=== PATIENT | male | born 1980 | race Caucasian/White ===

== ENCOUNTER → 2019-02-03 16:19 | Outpatient (CLI) | payer OTHER, SELFPAY ==
[2019-02-03 17:09] LABS: Influenza A and B by PCR Rapid Negative (Negative)
== END ==
PROVIDERS: Visit Provider Physician Assistant
DX: R52 Pain, unspecified (principal)
CPT/HCPCS: 87502

== ENCOUNTER → 2019-05-25 09:10 | Outpatient (CLI) | payer OTHER, SELFPAY ==
--- NOTE | 2019-05-25 09:15 | DI.MRI.S_ITS ---
PROCEDURE: MR BRAIN (IAC) WWO CON INDICATIONS: Unspecified sensorineural hearing loss TECHNIQUE: Noncontrast sagittal T1 spin echo, axial FLAIR, axial gradient echo, axial diffusion and ADC through the brain. Axial thin-slice 3D CISS, coronal TruFISP, axial T1 spin echo with fat saturation through the internal auditory canals. After the administration of contrast, thin slice axial and coronal T1 spin echo with fat saturation through the internal auditory canals, and axial T1 spin echo with fat saturation through the brain. COMPARISON: None. FINDINGS: Image quality: Excellent. Cerebellopontine angles: No cerebellopontine angle masses. Inner ear structures appear normally formed. No suspicious enhancement in the internal auditory canal or along the course of the 7th cranial nerve. CSF spaces: Ventricles are normal in size and shape. No extra-axial fluid collections. Basal cisterns are patent. Brain: No intracranial bleeds or mass effects. Fregoso-white matter interface is intact. No abnormal intracranial enhancement. Diffusion weighted images demonstrate no acute ischemic insults. Brainstem appears normal. Normal intravascular flow voids are present. Skull and face: Calvarial marrow signal is normal. Orbits appear normal. Mild left maxillary sinus disease IMPRESSION: No discrete mass or suspicious abnormal enhancement involving the IAC or cerebellopontine angles bilaterally. Dictated by: Jose Martin Cash M.D. on 05/25/2019 at 13:30 Approved by: Jose Martin Cash M.D. on 05/25/2019 at 13:48
== END ==
PROVIDERS: Referring Provider Audiologist; Visit Provider Audiologist
DX: H90.5 Unspecified sensorineural hearing loss (principal); J32.0 Chronic maxillary sinusitis
CPT/HCPCS: 70553; A9579

== ENCOUNTER → 2022-02-18 09:17 | Outpatient (CLI) | payer OTHER, SELFPAY ==
--- NOTE | 2022-02-18 09:18 | DI.MRI.S_ITS ---
PROCEDURE: MR BRAIN (IAC) WWO CON INDICATIONS: NOISE EFFECTS ON INNER EAR TECHNIQUE: Noncontrast sagittal T1 spin echo, axial FLAIR, axial gradient echo, axial diffusion and ADC through the brain. Axial thin-slice 3D CISS, coronal TruFISP, axial T1 spin echo with fat saturation through the internal auditory canals. After the administration of contrast, thin slice axial and coronal T1 spin echo with fat saturation through the internal auditory canals, and axial and coronal and sagittal T1 spin echo with fat saturation through the brain. COMPARISON: [facility], MR, MR BRAIN (IAC) WWO CON, 05/25/2019, 9:24. FINDINGS: Image quality: Excellent. Cerebellopontine angles: No cerebellopontine angle masses. Inner ear structures appear normally formed. No suspicious enhancement in the internal auditory canal or along the course of the 7th cranial nerve. Note is made of the vascular loop into the left internal auditory canal, as on series 7, image 25. CSF spaces: Ventricles are normal in size and shape. No extra-axial fluid collections. Basal cisterns are patent. Brain: No intracranial bleeds or mass effects. Fregoso-white matter interface is intact. No abnormal intracranial enhancement. Diffusion weighted images demonstrate no acute ischemic insults. Brainstem appears normal. Normal intravascular flow voids are present. Skull and face: Calvarial marrow signal is normal. Orbits appear normal. Sinuses: Sinuses and mastoids are clear. IMPRESSION: There is a vascular loop seen into the left internal auditory canal. Please correlate with potential left-sided pulsatile tinnitus. No masses or abnormal enhancement are seen within the cerebellopontine angle cisterns or within the internal auditory canals. Dictated by: Angel Smith M.D. on 02/19/2022 at 8:25 Approved by: Angel Smith M.D. on 02/19/2022 at 8:28
== END ==
PROVIDERS: Family Provider Student in an Organized Health Care Education/Training Program; PCP Student in an Organized Health Care Education/Training Program; Referring Provider Student in an Organized Health Care Education/Training Program; Visit Provider Student in an Organized Health Care Education/Training Program
DX: H83.3X3 Noise effects on inner ear, bilateral (principal)
CPT/HCPCS: 70553; A9579

== ENCOUNTER → 2022-04-12 08:17 | Outpatient (CLI) | payer OTHER, SELFPAY ==
--- NOTE | 2022-04-12 | DI.MRI.S_ITS ---
PROCEDURE: MR CERVICAL SPINE WO CON INDICATIONS: Cervicalgia TECHNIQUE: Noncontrast sagittal T1 spin echo and T2 fast spin echo, sagittal STIR, foraminal oblique sagittal T2 fast spin echo, and axial gradient echo or T2 fast spin echo through the cervical spine. COMPARISON: None. FINDINGS: Normal cervical spine vertebral body height and alignment. No suspicious focal marrow signal abnormality or bone marrow edema. Prevertebral and paraspinous soft tissues normal. Cervical cord is normal in morphology and signal intensity. No evidence of significant intradural pathology. C2-C3: Normal appearance. C3-C4: Trace neural foraminal narrowing due to uncovertebral spurring. C4-C5: Posterior disc-osteophyte complex flattens the ventral cord slightly. Facet and uncovertebral hypertrophy combine to produce moderate bilateral neural foraminal stenosis. C5-C6: Posterior disc osteophyte complex flattens the ventral thecal sac. Facet and uncovertebral hypertrophy combine to produce moderate left greater than right neural foraminal narrowing. C6-C7: No spinal canal stenosis. Mild neural foraminal narrowing due to facet and uncovertebral hypertrophy. C7-T1: No spinal canal or neural foraminal stenosis. IMPRESSION: Multilevel multifactorial degenerative changes worst C4-C5 and C5-C6. Dictated by: Florencio Villasenor M.D. on 04/12/2022 at 9:12 Approved by: Florencio Villasenor M.D. on 04/12/2022 at 9:14
== END ==
PROVIDERS: Family Provider Student in an Organized Health Care Education/Training Program; PCP Student in an Organized Health Care Education/Training Program; Referring Provider Student in an Organized Health Care Education/Training Program; Visit Provider Student in an Organized Health Care Education/Training Program
DX: M47.812 Spondylosis without myelopathy or radiculopathy, cervical region (principal); M54.2 Cervicalgia
CPT/HCPCS: 72141

== ENCOUNTER 2022-04-12 16:45 | Outpatient (RCR) | payer OTHER, SELFPAY ==
--- NOTE | 2022-01-30 17:27 | PT.OIE ---
Current Diagnoses Stiffness of other specified joint, not elsewhere classified (01/30/22) Cervicalgia (01/30/22) Visit Care Team Role Provider Type Treasure Sands MD Attending Provider Non-Staff Family Provider Primary Care Provider Referring Provider Specialty: Medical Address: [facility], [address] [place] [address], [id number] Email: Physical Therapy Initial Evaluation PT-OP-A Visit Information Start: 01/30/22 16:56 Freq: Status: Active Protocol: Document 01/30/22 09:55 DCW (Rec: 01/30/22 17:27 DCW [id number]) Out-Patient Physical Therapy Visit Information Visit Information Visit Type Initial Evaluation Visit Start Time 09:55 Visit Stop Time 10:25 Total Visit Minutes 30 Visit Number 1 Number of RETAIL SALES MERCHANDISER DEVELOPMENT Visits 0 Evaluation Information Evaluation Date 01/30/22 PT-OP-B Current Condition Start: 01/30/22 16:56 Freq: Status: Active Protocol: Document 01/30/22 09:55 DCW (Rec: 01/30/22 17:27 DCW [id number]) Current Condition History of Current Condition Onset Date Eight year history Current Complaints Neck pain/stiffness History of Current Condition Pt is a 41 year old male presenting with an eight year history of cervical pain and stiffness. 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 Additionally, feels it more with jolting motions, like when jogging or snowboarding. Pt reports he began noticing it fairly regularly when flying with the [employer] between [id number]. Notes he struggles with turning his head, especially to the left, and often feels like his neck is kind of weak. Treatment Goals Patient/Caregiver Goals Improve ROM back to normal, learn how to use stretching and strengthening to improve and then maintain PT-OP-C Subjective Start: 01/30/22 16:56 Freq: Status: Active Protocol: Document 01/30/22 09:55 DCW (Rec: 01/30/22 17:27 DCW [id number]) OP-PT Subjective Patient Comments Patient Comments Pt admits he has had a lot of different opportunities for significant compression through his spine, including landing airplanes and snowboarding. Patient Questionnaires Neck Disability Index NDI Score 5/50 = 10% Quick Dash- Upper Extremity Quick Dash UE Score 11.36% Quick Dash UE Impairment 1 to 19% Impaired (Score 1-19) PT-OP-F Manual Assessment Start: 01/30/22 16:56 Freq: Status: Active Protocol: Document 01/30/22 09:55 DCW (Rec: 01/30/22 17:27 DCW [id number]) Manual Assessments Soft Tissue Assessment Soft Tissue Mobility Assessment Moderate tone upper trap L>R, cervical paraspinals Joint Mobility Assessment Joint Mobility Assessment C4 hypomobility, slight retro shift with clockwise rotation, able to slightly reduce with resisted left cervical rotation PT-OP-K Range of Motion Start: 01/30/22 16:56 Freq: Status: Active Protocol: Document 01/30/22 09:55 DCW (Rec: 01/30/22 17:27 DCW [id number]) Cervical Spine Range of Motion Cervical Spine Active Degrees Testing Position Sitting Flexion 42 Extension 40 Rotation Left 34 Rotation Right 55 Lateral Flexion Left 30 Lateral Flexion Right 27 ROM Limitations Soft Tissue Tightness,Bony Restriction,Pain PT-OP-L Special Tests Start: 01/30/22 16:56 Freq: Status: Active Protocol: Document 01/30/22 09:55 DCW (Rec: 01/30/22 17:27 DCW [id number]) Special Tests Cervical Spine Special Tests Traction Test Results Negative Spurling's Test Test Results Negative Foraminal Compression Test Results Pain during compression and left rotation Alar Ligament Test Results Negative PT-OP-T Assessment and Plan Start: 01/30/22 16:56 Freq: Status: Active Protocol: Document 01/30/22 09:55 DCW (Rec: 01/30/22 17:27 DCW [id number]) Physical Therapy Assessment Rehab Potential Rehabilitation Potential Good Evaluation Complexity Number of Personal Factors/Comorbidities 0 Number of Body Systems Impaired 1-2 Clinical Presentation at Evaluation Stable Impairments Impairments Functional Activities, Functional Mobility,Pain,ROM, Soft Tissue Mobility,Strength Goals Two Impairment Pt left cervical rotation limited to 34? Teacher Cclc Goal (LTG) Pt to demonstrate left cervical rotation improved by at least 15? to 50? in order to improve ability to turn head to look for oncoming traffic while driving. LTG Duration 04/30/22 One Impairment Pt does not have an appropriate home exercise program Short Term Goal (STG) Pt to be independent and compliant with an appropriate HEP STG Duration 04/01/22 Assessment Summary Assessment Pt presents with signs and symptoms consistent with referring diagnosis. Pt displays decreased cervical ROM and hypertonia along upper traps and paraspinals, left greater than right. Noticeable dysfunction of vertebral mobility at C4 level, pt may benefit from radiographs. Pt currently able to perform job duties well, but will likely benefit from skilled therapy focusing on cervical ROM and flexibility exercises, strengthening, STM, joint mobilizations, and tone management. Physical Therapy Plan Frequency and Duration Frequency of Treatment 1-2x/week Plan of Care Start Date 01/30/22 Plan of Care End Date 04/30/22 Therapeutic Interventions Therapeutic Interventions Home Exercise Program,Joint Mobilizations,Manual Therapy, Neuromuscular Re-education, Patient/Caregiver Education, Self-Care/Home Management,Soft Tissue Mobilization,Taping, Therapeutic Activities, Therapeutic Exercises Modalities Cold Pack/Ice Massage,Electric Stimulation,Hot Packs Next Visit Focus/Plan Next Note Type Treatment Note Next Visit Plan Cervical ROM/flexibility, joint mobilizations, STM
--- NOTE | 2022-01-30 17:28 | PT.OPPOC ---
Physical, Occupational & Speech Therapy At [facility] Current Diagnoses Stiffness of other specified joint, not elsewhere classified (01/30/22) Cervicalgia (01/30/22) Visit Care Team Role Provider Type Treasure Sands MD Attending Provider Non-Staff Family Provider Primary Care Provider Referring Provider Specialty: Medical Address: [address], [address] Email: Plan Of Care PT-OP-T Assessment and Plan Start: 01/30/22 16:56 Freq: Status: Active Protocol: Document 01/30/22 09:55 DCW (Rec: 01/30/22 17:27 DCW [id number]) Physical Therapy Assessment Rehab Potential Rehabilitation Potential Good Evaluation Complexity Number of Personal Factors/Comorbidities 0 Number of Body Systems Impaired 1-2 Clinical Presentation at Evaluation Stable Impairments Impairments Functional Activities, Functional Mobility,Pain,ROM, Soft Tissue Mobility,Strength Goals Two Impairment Pt left cervical rotation limited to 34? Educational Adviser Goal (LTG) Pt to demonstrate left cervical rotation improved by at least 15? to 50? in order to improve ability to turn head to look for oncoming traffic while driving. LTG Duration 04/30/22 One Impairment Pt does not have an appropriate home exercise program Short Term Goal (STG) Pt to be independent and compliant with an appropriate HEP STG Duration 04/01/22 Assessment Summary Assessment Pt presents with signs and symptoms consistent with referring diagnosis. Pt displays decreased cervical ROM and hypertonia along upper traps and paraspinals, left greater than right. Noticeable dysfunction of vertebral mobility at C4 level, pt may benefit from radiographs. Pt currently able to perform job duties well, but will likely benefit from skilled therapy focusing on cervical ROM and flexibility exercises, strengthening, STM, joint mobilizations, and tone management. Physical Therapy Plan Frequency and Duration Frequency of Treatment 1-2x/week Plan of Care Start Date 01/30/22 Plan of Care End Date 04/30/22 Therapeutic Interventions Therapeutic Interventions Home Exercise Program,Joint Mobilizations,Manual Therapy, Neuromuscular Re-education, Patient/Caregiver Education, Self-Care/Home Management,Soft Tissue Mobilization,Taping, Therapeutic Activities, Therapeutic Exercises Modalities Cold Pack/Ice Massage,Electric Stimulation,Hot Packs Next Visit Focus/Plan Next Note Type Treatment Note Next Visit Plan Cervical ROM/flexibility, joint mobilizations, STM Plan of Care Dates Plan of Care Start Date 01/30/22 Plan of Care End Date 04/30/22 Electronically Signed by: Ashish Aguilar, PT 01/30/22 8415 If you are in agreement with this Plan of Care, please return a signed and dated copy. I have reviewed this Plan of Care and certify that the skilled therapy services above are required to meet the patient?s needs. Physician Signature Date Printed Name and Credentials Clinical Instructor Signature Printed Name and Credentials
--- NOTE | 2022-02-20 17:29 | PT.OTN ---
Current Diagnoses Stiffness of other specified joint, not elsewhere classified (02/20/22) Cervicalgia (02/20/22) Physical Therapy Treatment Note PT-OP-A Visit Information Start: 01/30/22 16:56 Freq: Status: Active Protocol: Document 02/20/22 16:45 DCW (Rec: 02/20/22 17:29 DCW [id number]) Out-Patient Physical Therapy Visit Information Visit Information Visit Type Treatment Note Visit Start Time 16:45 Visit Stop Time 17:20 Total Visit Minutes 35 Visit Number 2 Number of INSPECTOR CANNED FOOD RECONDITIONING Visits 0 Evaluation Information Evaluation Date 01/30/22 PT-OP-B Current Condition Start: 01/30/22 16:56 Freq: Status: Active Protocol: Document 01/30/22 09:55 DCW (Rec: 01/30/22 17:27 DCW [id number]) Current Condition History of Current Condition Onset Date Eight year history Current Complaints Neck pain/stiffness History of Current Condition Pt is a 41 year old male presenting with an eight year history of cervical pain and stiffness. 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 Additionally, feels it more with jolting motions, like when jogging or snowboarding. Pt reports he began noticing it fairly regularly when flying with the [employer] between 2729-5149. Notes he struggles with turning his head, especially to the left, and often feels like his neck is kind of weak. Treatment Goals Patient/Caregiver Goals Improve ROM back to normal, learn how to use stretching and strengthening to improve and then maintain PT-OP-C Subjective Start: 01/30/22 16:56 Freq: Status: Active Protocol: Document 02/20/22 16:45 DCW (Rec: 02/20/22 17:29 DCW [id number]) OP-PT Subjective Patient Comments Patient Comments Pt feels about the same. PT-OP-F Manual Assessment Start: 01/30/22 16:56 Freq: Status: Active Protocol: Document 01/30/22 09:55 DCW (Rec: 01/30/22 17:27 DCW [id number]) Manual Assessments Soft Tissue Assessment Soft Tissue Mobility Assessment Moderate tone upper trap L>R, cervical paraspinals Joint Mobility Assessment Joint Mobility Assessment C4 hypomobility, slight retro shift with clockwise rotation, able to slightly reduce with resisted left cervical rotation PT-OP-K Range of Motion Start: 01/30/22 16:56 Freq: Status: Active Protocol: Document 01/30/22 09:55 DCW (Rec: 01/30/22 17:27 DCW [id number]) Cervical Spine Range of Motion Cervical Spine Active Degrees Testing Position Sitting Flexion 42 Extension 40 Rotation Left 34 Rotation Right 55 Lateral Flexion Left 30 Lateral Flexion Right 27 ROM Limitations Soft Tissue Tightness,Bony Restriction,Pain PT-OP-L Special Tests Start: 01/30/22 16:56 Freq: Status: Active Protocol: Document 01/30/22 09:55 DCW (Rec: 01/30/22 17:27 DCW [id number]) Special Tests Cervical Spine Special Tests Traction Test Results Negative Spurling's Test Test Results Negative Foraminal Compression Test Results Pain during compression and left rotation Alar Ligament Test Results Negative PT-OP-Q Treatments Start: 01/30/22 16:56 Freq: Status: Active Protocol: Document 02/20/22 16:45 DCW (Rec: 02/20/22 17:29 DCW [id number]) Therapeutic Exercises Sitting Exercises Scalene Stretch Sitting Exercise Name Anterior and posterior scalene stretch Side bilateral Upper Trap Sitting Exercise Name UT stretch Side bilateral Manual Therapy Treatment Soft Tissue Mobilization Cervical Paraspinals Body Location UT, Scalenes, SCM, Levator, paraspinals Mobilization Type Sustained Pressure,Trigger Point Release Intensity/Depth Moderate Body Position Supine Manual Traction Cervical Details Cervical Traction Body Position Supine PT-OP-T Assessment and Plan Start: 01/30/22 16:56 Freq: Status: Active Protocol: Document 02/20/22 16:45 DCW (Rec: 02/20/22 17:29 DCW [id number]) Physical Therapy Assessment Impairments Impairments Functional Activities, Functional Mobility,Pain,ROM, Soft Tissue Mobility,Strength Goals Two Impairment Pt left cervical rotation limited to 34? Certified Legal Investigator Goal (LTG) Pt to demonstrate left cervical rotation improved by at least 15? to 50? in order to improve ability to turn head to look for oncoming traffic while driving. LTG Duration 04/30/22 One Impairment Pt does not have an appropriate home exercise program Short Term Goal (STG) Pt to be independent and compliant with an appropriate HEP STG Duration 04/01/22 Assessment Summary Assessment Cervical rotation increased from 34->48? following STM and traction, pt had great follow -through with HEP stretching, demonstrated good understanding. Continue with stretching and STM, may add cervical strengthening as tolerated. Physical Therapy Plan Frequency and Duration Frequency of Treatment 1-2x/week Plan of Care Start Date 01/30/22 Plan of Care End Date 04/30/22 Therapeutic Interventions Therapeutic Interventions Home Exercise Program,Joint Mobilizations,Manual Therapy, Neuromuscular Re-education, Patient/Caregiver Education, Self-Care/Home Management,Soft Tissue Mobilization,Taping, Therapeutic Activities, Therapeutic Exercises Modalities Cold Pack/Ice Massage,Electric Stimulation,Hot Packs Next Visit Focus/Plan Next Note Type Treatment Note Next Visit Plan Cervical ROM/flexibility, joint mobilizations, STM
--- NOTE | 2022-03-14 08:29 | PT-OP ANOTE ---
Pt did not show for today's appt, INTERNATIONAL NURSE left message regarding and reminded of next appt on 03/20 010.
--- NOTE | 2022-04-04 17:30 | PT.OTN ---
Current Diagnoses Stiffness of other specified joint, not elsewhere classified (04/04/22) Cervicalgia (04/04/22) Physical Therapy Treatment Note PT-OP-A Visit Information Start: 01/30/22 16:56 Freq: Status: Active Protocol: Document 04/04/22 16:45 DCW (Rec: 04/04/22 17:30 DCW [id number]) Out-Patient Physical Therapy Visit Information Visit Information Visit Type Treatment Note Visit Start Time 16:45 Visit Stop Time 17:30 Total Visit Minutes 45 Visit Number 3 Number of ASSOCIATE SOFTWARE DEVELOPER Visits 0 Evaluation Information Evaluation Date 01/30/22 PT-OP-B Current Condition Start: 01/30/22 16:56 Freq: Status: Active Protocol: Document 01/30/22 09:55 DCW (Rec: 01/30/22 17:27 DCW [id number]) Current Condition History of Current Condition Onset Date Eight year history Current Complaints Neck pain/stiffness History of Current Condition Pt is a 41 year old male presenting with an eight year history of cervical pain and stiffness. 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 Additionally, feels it more with jolting motions, like when jogging or snowboarding. Pt reports he began noticing it fairly regularly when flying with the [employer] between 2598-6625. Notes he struggles with turning his head, especially to the left, and often feels like his neck is kind of weak. Treatment Goals Patient/Caregiver Goals Improve ROM back to normal, learn how to use stretching and strengthening to improve and then maintain PT-OP-C Subjective Start: 01/30/22 16:56 Freq: Status: Active Protocol: Document 04/04/22 16:45 DCW (Rec: 04/04/22 17:30 DCW [id number]) OP-PT Subjective Patient Comments Patient Comments [place] better for a bit following last visit, worsened a little, but today feeling a bit better. Did get a referral for an MRI earlier today. PT-OP-F Manual Assessment Start: 01/30/22 16:56 Freq: Status: Active Protocol: Document 01/30/22 09:55 DCW (Rec: 01/30/22 17:27 DCW [id number]) Manual Assessments Soft Tissue Assessment Soft Tissue Mobility Assessment Moderate tone upper trap L>R, cervical paraspinals Joint Mobility Assessment Joint Mobility Assessment C4 hypomobility, slight retro shift with clockwise rotation, able to slightly reduce with resisted left cervical rotation PT-OP-K Range of Motion Start: 01/30/22 16:56 Freq: Status: Active Protocol: Document 01/30/22 09:55 DCW (Rec: 01/30/22 17:27 DCW [id number]) Cervical Spine Range of Motion Cervical Spine Active Degrees Testing Position Sitting Flexion 42 Extension 40 Rotation Left 34 Rotation Right 55 Lateral Flexion Left 30 Lateral Flexion Right 27 ROM Limitations Soft Tissue Tightness,Bony Restriction,Pain PT-OP-L Special Tests Start: 01/30/22 16:56 Freq: Status: Active Protocol: Document 01/30/22 09:55 DCW (Rec: 01/30/22 17:27 DCW [id number]) Special Tests Cervical Spine Special Tests Traction Test Results Negative Spurling's Test Test Results Negative Foraminal Compression Test Results Pain during compression and left rotation Alar Ligament Test Results Negative PT-OP-Q Treatments Start: 01/30/22 16:56 Freq: Status: Active Protocol: Document 04/04/22 16:45 DCW (Rec: 04/04/22 17:30 DCW [id number]) Therapeutic Exercises Supine Exercises Chin tuck Supine Exercise Name Chin tuck//head lift Sitting Exercises Scalene Stretch Sitting Exercise Name Anterior and posterior scalene stretch Side bilateral Upper Trap Sitting Exercise Name UT stretch Side bilateral Manual Therapy Treatment Soft Tissue Mobilization Cervical Paraspinals Body Location UT, Scalenes, SCM, Levator, paraspinals Mobilization Type Sustained Pressure,Trigger Point Release Intensity/Depth Moderate Body Position Supine Manual Traction Cervical Details Cervical Traction Body Position Supine PT-OP-T Assessment and Plan Start: 01/30/22 16:56 Freq: Status: Active Protocol: Document 04/04/22 16:45 DCW (Rec: 04/04/22 17:30 DCW [id number]) Physical Therapy Assessment Impairments Impairments Functional Activities, Functional Mobility,Pain,ROM, Soft Tissue Mobility,Strength Goals Two Impairment Pt left cervical rotation limited to 34? Senior Auditor Goal (LTG) Pt to demonstrate left cervical rotation improved by at least 15? to 50? in order to improve ability to turn head to look for oncoming traffic while driving. LTG Duration 04/30/22 One Impairment Pt does not have an appropriate home exercise program Short Term Goal (STG) Pt to be independent and compliant with an appropriate HEP STG Duration 04/01/22 Assessment Summary Assessment Pt currently not compliant with his HEP, discussed need for continued strengthening, added chin tucks to help with intrinsic cervical flexors. Improved cervical mobility following today's session. Physical Therapy Plan Frequency and Duration Frequency of Treatment 1-2x/week Plan of Care Start Date 01/30/22 Plan of Care End Date 04/30/22 Therapeutic Interventions Therapeutic Interventions Home Exercise Program,Joint Mobilizations,Manual Therapy, Neuromuscular Re-education, Patient/Caregiver Education, Self-Care/Home Management,Soft Tissue Mobilization,Taping, Therapeutic Activities, Therapeutic Exercises Modalities Cold Pack/Ice Massage,Electric Stimulation,Hot Packs Next Visit Focus/Plan Next Note Type Treatment Note Next Visit Plan Cervical ROM/flexibility, joint mobilizations, STM
--- NOTE | 2022-04-06 16:56 | PT.OTN ---
Current Diagnoses Stiffness of other specified joint, not elsewhere classified (04/06/22) Cervicalgia (04/06/22) Physical Therapy Treatment Note PT-OP-A Visit Information Start: 01/30/22 16:56 Freq: Status: Active Protocol: Document 04/06/22 16:00 DCW (Rec: 04/06/22 16:55 DCW [id number]) Out-Patient Physical Therapy Visit Information Visit Information Visit Type Treatment Note Visit Start Time 16:00 Visit Stop Time 16:45 Total Visit Minutes 45 Visit Number 4 Number of GRANITE FABRICATOR Visits 0 Evaluation Information Evaluation Date 01/30/22 PT-OP-B Current Condition Start: 01/30/22 16:56 Freq: Status: Active Protocol: Document 01/30/22 09:55 DCW (Rec: 01/30/22 17:27 DCW [id number]) Current Condition History of Current Condition Onset Date Eight year history Current Complaints Neck pain/stiffness History of Current Condition Pt is a 41 year old male presenting with an eight year history of cervical pain and stiffness. 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 Additionally, feels it more with jolting motions, like when jogging or snowboarding. Pt reports he began noticing it fairly regularly when flying with the [employer] between [id number]. Notes he struggles with turning his head, especially to the left, and often feels like his neck is kind of weak. Treatment Goals Patient/Caregiver Goals Improve ROM back to normal, learn how to use stretching and strengthening to improve and then maintain PT-OP-C Subjective Start: 01/30/22 16:56 Freq: Status: Active Protocol: Document 04/06/22 16:00 DCW (Rec: 04/06/22 16:56 DCW [id number]) OP-PT Subjective Patient Comments Patient Comments Pt noting some improvement overall PT-OP-F Manual Assessment Start: 01/30/22 16:56 Freq: Status: Active Protocol: Document 01/30/22 09:55 DCW (Rec: 01/30/22 17:27 DCW [id number]) Manual Assessments Soft Tissue Assessment Soft Tissue Mobility Assessment Moderate tone upper trap L>R, cervical paraspinals Joint Mobility Assessment Joint Mobility Assessment C4 hypomobility, slight retro shift with clockwise rotation, able to slightly reduce with resisted left cervical rotation PT-OP-K Range of Motion Start: 01/30/22 16:56 Freq: Status: Active Protocol: Document 01/30/22 09:55 DCW (Rec: 01/30/22 17:27 DCW [id number]) Cervical Spine Range of Motion Cervical Spine Active Degrees Testing Position Sitting Flexion 42 Extension 40 Rotation Left 34 Rotation Right 55 Lateral Flexion Left 30 Lateral Flexion Right 27 ROM Limitations Soft Tissue Tightness,Bony Restriction,Pain PT-OP-L Special Tests Start: 01/30/22 16:56 Freq: Status: Active Protocol: Document 01/30/22 09:55 DCW (Rec: 01/30/22 17:27 DCW [id number]) Special Tests Cervical Spine Special Tests Traction Test Results Negative Spurling's Test Test Results Negative Foraminal Compression Test Results Pain during compression and left rotation Alar Ligament Test Results Negative PT-OP-Q Treatments Start: 01/30/22 16:56 Freq: Status: Active Protocol: Document 04/06/22 16:00 DCW (Rec: 04/06/22 16:55 DCW [id number]) Therapeutic Exercises Sitting Exercises Upper Trap Sitting Exercise Name UT stretch Side bilateral Standing Exercises Cervical extension Standing Exercise Name Isometric cervical extension Resistance Lv 3 Manual Therapy Treatment Soft Tissue Mobilization Cervical Paraspinals Body Location UT, Scalenes, SCM, Levator, paraspinals Mobilization Type Sustained Pressure,Trigger Point Release Intensity/Depth Moderate Body Position Supine Manual Traction Cervical Details Cervical Traction Body Position Supine PT-OP-T Assessment and Plan Start: 01/30/22 16:56 Freq: Status: Active Protocol: Document 04/06/22 16:00 DCW (Rec: 04/06/22 16:55 DCW [id number]) Physical Therapy Assessment Impairments Impairments Functional Activities, Functional Mobility,Pain,ROM, Soft Tissue Mobility,Strength Goals Two Impairment Pt left cervical rotation limited to 34? Long-Term Goal (LTG) Pt to demonstrate left cervical rotation improved by at least 15? to 50? in order to improve ability to turn head to look for oncoming traffic while driving. LTG Duration 04/30/22 One Impairment Pt does not have an appropriate home exercise program Short Term Goal (STG) Pt to be independent and compliant with an appropriate HEP STG Duration 04/01/22 Assessment Summary Assessment Pt doing better with his HEP, noticing some improved function. Decreased overall tone noticed during STM today. Physical Therapy Plan Frequency and Duration Frequency of Treatment 1-2x/week Plan of Care Start Date 01/30/22 Plan of Care End Date 04/30/22 Therapeutic Interventions Therapeutic Interventions Home Exercise Program,Joint Mobilizations,Manual Therapy, Neuromuscular Re-education, Patient/Caregiver Education, Self-Care/Home Management,Soft Tissue Mobilization,Taping, Therapeutic Activities, Therapeutic Exercises Modalities Cold Pack/Ice Massage,Electric Stimulation,Hot Packs Next Visit Focus/Plan Next Note Type Treatment Note Next Visit Plan Cervical ROM/flexibility, joint mobilizations, STM
--- NOTE | 2022-04-12 17:33 | PT.OTN ---
Current Diagnoses Stiffness of other specified joint, not elsewhere classified (04/12/22) Cervicalgia (04/12/22) Physical Therapy Treatment Note PT-OP-A Visit Information Start: 01/30/22 16:56 Freq: Status: Active Protocol: Document 04/12/22 16:45 DCW (Rec: 04/12/22 17:33 DCW [id number]) Out-Patient Physical Therapy Visit Information Visit Information Visit Type Treatment Note Visit Start Time 16:45 Visit Stop Time 17:30 Total Visit Minutes 45 Visit Number 5 Number of STRIPE MATCHER Visits 0 Evaluation Information Evaluation Date 01/30/22 PT-OP-B Current Condition Start: 01/30/22 16:56 Freq: Status: Active Protocol: Document 01/30/22 09:55 DCW (Rec: 01/30/22 17:27 DCW [id number]) Current Condition History of Current Condition Onset Date Eight year history Current Complaints Neck pain/stiffness History of Current Condition Pt is a 41 year old male presenting with an eight year history of cervical pain and stiffness. 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 Additionally, feels it more with jolting motions, like when jogging or snowboarding. Pt reports he began noticing it fairly regularly when flying with the [employer] between [id number]. Notes he struggles with turning his head, especially to the left, and often feels like his neck is kind of weak. Treatment Goals Patient/Caregiver Goals Improve ROM back to normal, learn how to use stretching and strengthening to improve and then maintain PT-OP-C Subjective Start: 01/30/22 16:56 Freq: Status: Active Protocol: Document 04/12/22 16:45 DCW (Rec: 04/12/22 17:33 DCW [id number]) OP-PT Subjective Patient Comments Patient Comments Pt went snowboarding a few days ago, admits it wasn't great for his neck, but it's worth it. PT-OP-F Manual Assessment Start: 01/30/22 16:56 Freq: Status: Active Protocol: Document 01/30/22 09:55 DCW (Rec: 01/30/22 17:27 DCW [id number]) Manual Assessments Soft Tissue Assessment Soft Tissue Mobility Assessment Moderate tone upper trap L>R, cervical paraspinals Joint Mobility Assessment Joint Mobility Assessment C4 hypomobility, slight retro shift with clockwise rotation, able to slightly reduce with resisted left cervical rotation PT-OP-K Range of Motion Start: 01/30/22 16:56 Freq: Status: Active Protocol: Document 01/30/22 09:55 DCW (Rec: 01/30/22 17:27 DCW [id number]) Cervical Spine Range of Motion Cervical Spine Active Degrees Testing Position Sitting Flexion 42 Extension 40 Rotation Left 34 Rotation Right 55 Lateral Flexion Left 30 Lateral Flexion Right 27 ROM Limitations Soft Tissue Tightness,Bony Restriction,Pain PT-OP-L Special Tests Start: 01/30/22 16:56 Freq: Status: Active Protocol: Document 01/30/22 09:55 DCW (Rec: 01/30/22 17:27 DCW [id number]) Special Tests Cervical Spine Special Tests Traction Test Results Negative Spurling's Test Test Results Negative Foraminal Compression Test Results Pain during compression and left rotation Alar Ligament Test Results Negative PT-OP-Q Treatments Start: 01/30/22 16:56 Freq: Status: Active Protocol: Document 04/12/22 16:45 DCW (Rec: 04/12/22 17:33 DCW [id number]) Manual Therapy Treatment Soft Tissue Mobilization Cervical Paraspinals Body Location UT, Scalenes, SCM, Levator, paraspinals Mobilization Type Sustained Pressure,Trigger Point Release Intensity/Depth Moderate Body Position Supine Manual Traction Cervical Details Cervical Traction Body Position Supine PT-OP-T Assessment and Plan Start: 01/30/22 16:56 Freq: Status: Active Protocol: Document 04/12/22 16:45 DCW (Rec: 04/12/22 17:33 DCW [id number]) Physical Therapy Assessment Impairments Impairments Functional Activities, Functional Mobility,Pain,ROM, Soft Tissue Mobility,Strength Goals Two Impairment Pt left cervical rotation limited to 34? Electrification Adviser Goal (LTG) Pt to demonstrate left cervical rotation improved by at least 15? to 50? in order to improve ability to turn head to look for oncoming traffic while driving. LTG Duration 04/30/22 One Impairment Pt does not have an appropriate home exercise program Short Term Goal (STG) Pt to be independent and compliant with an appropriate HEP STG Duration 04/01/22 Assessment Summary Assessment Increased tone today compared to recent visits after pt went snowboarding earlier this week, but responded well to treatment, decreased tone and improved ROM following session Physical Therapy Plan Frequency and Duration Frequency of Treatment 1-2x/week Plan of Care Start Date 01/30/22 Plan of Care End Date 04/30/22 Therapeutic Interventions Therapeutic Interventions Home Exercise Program,Joint Mobilizations,Manual Therapy, Neuromuscular Re-education, Patient/Caregiver Education, Self-Care/Home Management,Soft Tissue Mobilization,Taping, Therapeutic Activities, Therapeutic Exercises Modalities Cold Pack/Ice Massage,Electric Stimulation,Hot Packs Next Visit Focus/Plan Next Note Type Treatment Note Next Visit Plan Cervical ROM/flexibility, joint mobilizations, STM
--- NOTE | 2022-07-12 09:32 | PT.OPDS ---
Current Diagnoses Stiffness of other specified joint, not elsewhere classified (04/12/22) Cervicalgia (04/12/22) Visit Care Team Role Provider Type Treasure Sands MD Attending Provider Non-Staff Family Provider Primary Care Provider Referring Provider Specialty: Medical Address: [facility], [address] [place] [address], [phone] Email: Visit Number Visit Number 5 Discharge Summary PT-OP-B Current Condition Start: 01/30/22 16:56 Freq: Status: Active Protocol: Document 01/30/22 09:55 DCW (Rec: 01/30/22 17:27 DCW [id number]) Current Condition History of Current Condition Onset Date Eight year history Current Complaints Neck pain/stiffness History of Current Condition Pt is a 41 year old male presenting with an eight year history of cervical pain and stiffness. 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 Additionally, feels it more with jolting motions, like when jogging or snowboarding. Pt reports he began noticing it fairly regularly when flying with the [employer] between [id number]. Notes he struggles with turning his head, especially to the left, and often feels like his neck is kind of weak. Treatment Goals Patient/Caregiver Goals Improve ROM back to normal, learn how to use stretching and strengthening to improve and then maintain PT-OP-C Subjective Start: 01/30/22 16:56 Freq: Status: Active Protocol: Document 04/12/22 16:45 DCW (Rec: 04/12/22 17:33 DCW [id number]) OP-PT Subjective Patient Comments Patient Comments Pt went snowboarding a few days ago, admits it wasn't great for his neck, but it's worth it. PT-OP-F Manual Assessment Start: 01/30/22 16:56 Freq: Status: Active Protocol: Document 01/30/22 09:55 DCW (Rec: 01/30/22 17:27 DCW [id number]) Manual Assessments Soft Tissue Assessment Soft Tissue Mobility Assessment Moderate tone upper trap L>R, cervical paraspinals Joint Mobility Assessment Joint Mobility Assessment C4 hypomobility, slight retro shift with clockwise rotation, able to slightly reduce with resisted left cervical rotation PT-OP-K Range of Motion Start: 01/30/22 16:56 Freq: Status: Active Protocol: Document 01/30/22 09:55 DCW (Rec: 01/30/22 17:27 DCW [id number]) Cervical Spine Range of Motion Cervical Spine Active Degrees Testing Position Sitting Flexion 42 Extension 40 Rotation Left 34 Rotation Right 55 Lateral Flexion Left 30 Lateral Flexion Right 27 ROM Limitations Soft Tissue Tightness,Bony Restriction,Pain PT-OP-L Special Tests Start: 01/30/22 16:56 Freq: Status: Active Protocol: Document 01/30/22 09:55 DCW (Rec: 01/30/22 17:27 DCW [id number]) Special Tests Cervical Spine Special Tests Traction Test Results Negative Spurling's Test Test Results Negative Foraminal Compression Test Results Pain during compression and left rotation Alar Ligament Test Results Negative PT-OP-T Assessment and Plan Start: 01/30/22 16:56 Freq: Status: Active Protocol: Document 07/12/22 09:31 DCW (Rec: 07/12/22 09:32 DCW [id number]) Physical Therapy Assessment Assessment Summary Assessment Pt had a long lay-off from PT while attempting to get further insurance authorization. Pt now coming back for PT, but received a new referral and will be undergoing an entirely new evaluation. Discharge this chart at this time.
== END 2022-07-12 09:35 ==
LOC: PHYS 16:45
PROVIDERS: Family Provider Student in an Organized Health Care Education/Training Program; PCP Student in an Organized Health Care Education/Training Program; Referring Provider Student in an Organized Health Care Education/Training Program; Visit Provider Student in an Organized Health Care Education/Training Program
DX: M54.2 Cervicalgia (principal); M25.69 Stiffness of other specified joint, not elsewhere classified
CPT/HCPCS: 97110; 97140; 97161

== ENCOUNTER → 2022-04-27 08:12 | Outpatient (CLI) | payer OTHER, SELFPAY ==
--- NOTE | 2022-04-27 08:15 | DI.MRI.S_ITS ---
PROCEDURE: MR LUMBAR SPINE WO CON INDICATIONS: Low back pain, unspecified TECHNIQUE: Noncontrast sagittal T1 spin echo and T2 fast echo, sagittal STIR, and T2 fast spin echo through the lumbar spine. In cases with scoliosis, additional coronal T2 fast spin echo may be performed. COMPARISON: None. FINDINGS: Image quality: Excellent. Alignment and Curvature: No plain films are available for comparison, for numbering purposes. Thus, for the purposes of this examination, 5 lumbar type vertebral bodies will be presumed, as denoted on the montage panel. This should be confirmed and correlated with plain films, prior to any lumbar spinal intervention. Loss of normal lumbar lordosis. 2 mm of retrolisthesis of L1 on L2. 3 mm of retrolisthesis of L5 on S1. Bone Marrow: Marrow is of normal overall signal. No acute vertebral body compression fractures. Moderate reactive signal within the endplates adjacent to the L5-S1 intervertebral disc. Mild reactive signal within the remaining visualized thoracolumbar endplates. Spinal Cord: Conus medullaris terminates at the L1-L2 disc space level. Visualized cord demonstrates normal signal and size. Paraspinous Soft Tissues: No paravertebral masses. T12-L1: Normal appearance. L1-L2: Mild disc height loss and desiccation. Mild diffuse disc bulge. Mild canal stenosis. Mild bilateral foraminal stenosis. L2-L3: Normal appearance. L3-L4: Normal appearance. L4-L5: Normal appearance. L5-S1: Moderate disc height loss and desiccation. Mild diffuse disc bulge. Mild bilateral facet hypertrophy. Mild canal stenosis. Moderate to severe bilateral foraminal stenosis. Bilateral L5 nerve root compression. IMPRESSION: 1. Multilevel degenerative disc and facet disease, as well as ligamentum flavum hypertrophy and epidural lipomatosis. 2. Mild multilevel canal stenoses. 3. Multilevel foraminal stenoses, worst at L5-S1 where there is associated intraforaminal nerve root compression. Recommend correlation with clinical symptoms to ascertain relevance of these findings. 4. 5 lumbar type vertebral bodies were presumed for the current report. Plain films of the lumbar spine are recommended for confirmation, prior to any lumbar spinal intervention. Dictated by: Ismael Do M.D. on 04/27/2022 at 10:10 Transcribed by: GILMER on 04/27/2022 at 10:12 Approved by: Ismael Do M.D. on 04/27/2022 at 12:49
== END ==
PROVIDERS: Family Provider Student in an Organized Health Care Education/Training Program; PCP Student in an Organized Health Care Education/Training Program; Referring Provider Student in an Organized Health Care Education/Training Program; Visit Provider Student in an Organized Health Care Education/Training Program
DX: M51.36 Other intervertebral disc degeneration, lumbar region (principal); M51.37 Other intervertebral disc degeneration, lumbosacral region; M47.816 Spondylosis without myelopathy or radiculopathy, lumbar region; M47.817 Spondylosis without myelopathy or radiculopathy, lumbosacral region; M48.061 Spinal stenosis, lumbar region without neurogenic claudication; M48.07 Spinal stenosis, lumbosacral region; M54.50 Low back pain, unspecified
CPT/HCPCS: 72148

== ENCOUNTER 2022-08-06 16:30 | Outpatient (RCR) | payer OTHER, SELFPAY ==
--- NOTE | 2022-07-12 12:38 | PT.OIE ---
Current Diagnoses Cervicalgia (07/12/22) Low back pain, unspecified (07/12/22) Visit Care Team Role Provider Type Treasure Sands MD Family Provider Non-Staff Primary Care Provider Specialty: Medical Address: [facility], [address] [place] [address], [id number] Email: Winston Conde DO Attending Provider Non-Staff Referring Provider Specialty: Medical Address: [facility], [address] [place] [address], [id number] Email: Physical Therapy Initial Evaluation PT-OP-A Visit Information Start: 07/12/22 12:02 Freq: Status: Active Protocol: Document 07/12/22 10:36 DCW (Rec: 07/12/22 12:23 DCW [id number]) Out-Patient Physical Therapy Visit Information Visit Information Visit Type Initial Evaluation Visit Start Time 10:36 Visit Stop Time 11:15 Total Visit Minutes 39 Visit Number 1 Number of CARBONATION EQUIPMENT TENDER Visits 0 Evaluation Information Evaluation Date 07/12/22 PT-OP-B Current Condition Start: 07/12/22 12:02 Freq: Status: Active Protocol: Document 07/12/22 10:36 DCW (Rec: 07/12/22 12:23 DCW [id number]) Current Condition History of Current Condition Onset Date 12 year history Current Complaints Low back pain History of Current Condition Pt is a 41 year old male presenting with a 12 year history of low back pain. Pt was also recently treated at this facility for cervical pain, which has improved, but still gives him trouble. Pt reports that his pain is mostly with and compression impact, like snow boarding or running, but also gets quite a bit of pain just rolling over in bed or lying on a firm surface. Rest and avoiding these activities have so far been the only thing that really alleviates any pain for him. 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 Prior Treatments and Tests Treated Jan 2022-Mar 2022 at this clinic for cervical pain and stiffness PT-OP-C Subjective Start: 07/12/22 12:02 Freq: Status: Active Protocol: Document 07/12/22 10:36 DCW (Rec: 07/12/22 12:23 DCW [id number]) OP-PT Subjective Patient Comments Patient Comments I'm just hoping to get all these issues that have been building up taken care of before I retire. Patient Questionnaires Oswestry Low Back Index Oswestry Score 6/50 = 12% Oswestry Impairment 1 to 19% Impaired (Score 1-19) OP-PT Pain Assessment Pain Assessment Grid Paper Pain Assessment Grid Completed See scan PT-OP-F Manual Assessment Start: 07/12/22 12:02 Freq: Status: Active Protocol: Document 07/12/22 10:36 DCW (Rec: 07/12/22 12:23 DCW [id number]) Manual Assessments Soft Tissue Assessment Soft Tissue Mobility Assessment Mild-moderate tone in lumbar paraspinals, L>R. Joint Mobility Assessment Joint Mobility Assessment Hypermobility of lumbar spine, especially L4, L5 PT-OP-K Range of Motion Start: 07/12/22 12:02 Freq: Status: Active Protocol: Document 07/12/22 10:36 DCW (Rec: 07/12/22 12:23 DCW [id number]) Lumbar Spine Range of Motion Lumbar Spine Active Degrees Testing Position Standing Flexion 55 Extension 10 Lateral Flexion Left 61 Lateral Flexion Right 60 ROM Limitations Soft Tissue Tightness,Muscle Tone,Pain Comments Flexion gets to 55?, pain begins at 15? Lateral flexion measured in cm from fingertips to floor PT-OP-L Special Tests Start: 07/12/22 12:02 Freq: Status: Active Protocol: Document 07/12/22 10:36 DCW (Rec: 07/12/22 12:23 DCW [id number]) Special Tests Lumbar Spine Special Tests Vertical Spine Loading Test Results Negative Straight Leg Raise Test Results Hamstring tightness, L=38?, R= 44? Slump Test Results Hamstring tightness Prone Instability Test Test Results Positive Manual Traction Test Results unilateral LE traction caused contralateral low back/ posterior hip pain Compression Test Results Negative A-P Shearing Test Results Negative PT-OP-M Strength Start: 07/12/22 12:02 Freq: Status: Active Protocol: Document 07/12/22 10:36 DCW (Rec: 07/12/22 12:23 DCW [id number]) Trunk Strength Trunk Manual Muscle Testing Core Stabilization Pt has very good core contraction with instruction, however demonstrates minimal contraction at baseline. PT-OP-Q Treatments Start: 07/12/22 12:02 Freq: Status: Active Protocol: Document 07/12/22 10:36 DCW (Rec: 07/12/22 12:23 DCW [id number]) Therapeutic Exercises Supine Exercises TrA contraction Supine Exercise Name core stabilization during turning LTR Supine Exercise Name LTR /c TrA contraction Hamstring stretch Supine Exercise Name HS stretch PT-OP-T Assessment and Plan Start: 07/12/22 12:02 Freq: Status: Active Protocol: Document 07/12/22 10:36 DCW (Rec: 07/12/22 12:38 DCW [id number]) Physical Therapy Assessment Rehab Potential Rehabilitation Potential Good Evaluation Complexity Number of Personal Factors/Comorbidities 1-2 Number of Body Systems Impaired 3 Clinical Presentation at Evaluation Unstable Impairments Impairments Functional Activities, Functional Mobility,Pain,ROM, Soft Tissue Mobility,Strength, Tone Goals Three Impairment Pt unable to participate in normal hobbies without increased back pain Intermediate Goal (LTG) Pt to return to jogging at least 5 miles without needing to take a break due to low back pain. LTG Duration 10/10/22 Two Impairment Pt shows signs of lumbar instability Intermediate Goal (LTG) Pt to decrease hypermobility of lumbar spine by improving consistency of using core to brace body with movement, reporting an absence of low back pain when rolling in bed 50% of the time. LTG Duration 10/10/22 One Impairment Pt does not have an appropriate home exercise program Short Term Goal (STG) Pt to be independent and compliant with an appropriate HEP STG Duration 08/11/22 Assessment Summary Assessment Pt presents with signs and symptoms consistent with referring diagnosis. Pt likely experiencing lumbar instability, creating increased pain/soreness with twisting and impact activities . Pt should benefit from skilled therapy focusing on both improving core strength and retraining his body to use abdominal bracing more to decrease instability and reliance on low back during impact and jarring activities. Pt would also benefit from STM and stretching to decrease tightness in lumbar paraspinals and hamstrings. Physical Therapy Plan Frequency and Duration Frequency of Treatment 1-2x/week Plan of Care Start Date 07/12/22 Plan of Care End Date 10/10/22 Therapeutic Interventions Therapeutic Interventions Home Exercise Program,Joint Mobilizations,Manual Therapy, Patient/Caregiver Education, Self-Care/Home Management,Soft Tissue Mobilization, Therapeutic Activities, Therapeutic Exercises Modalities Cold Pack/Ice Massage,Electric Stimulation,Hot Packs, Ultrasound Next Visit Focus/Plan Next Note Type Treatment Note Next Visit Plan Core lopez, [facility] for body mechanics/core bracing, STM
--- NOTE | 2022-07-12 12:38 | PT.OPPOC ---
Physical, Occupational & Speech Therapy At [facility] Current Diagnoses Cervicalgia (07/12/22) Low back pain, unspecified (07/12/22) Visit Care Team Role Provider Type Treasure Sands MD Family Provider Non-Staff Primary Care Provider Specialty: Medical Address: [facility], [address] [place] [address], [phone] Email: Winston Conde DO Attending Provider Non-Staff Referring Provider Specialty: Medical Address: [facility], [address] [place] [address], [id number] Email: Plan Of Care PT-OP-T Assessment and Plan Start: 07/12/22 12:02 Freq: Status: Active Protocol: Document 07/12/22 10:36 DCW (Rec: 07/12/22 12:38 DCW [id number]) Physical Therapy Assessment Rehab Potential Rehabilitation Potential Good Evaluation Complexity Number of Personal Factors/Comorbidities 1-2 Number of Body Systems Impaired 3 Clinical Presentation at Evaluation Unstable Impairments Impairments Functional Activities, Functional Mobility,Pain,ROM, Soft Tissue Mobility,Strength, Tone Goals Three Impairment Pt unable to participate in normal hobbies without increased back pain Scrap Sawyer Goal (LTG) Pt to return to jogging at least 5 miles without needing to take a break due to low back pain. LTG Duration 10/10/22 Two Impairment Pt shows signs of lumbar instability Shelter Goal (LTG) Pt to decrease hypermobility of lumbar spine by improving consistency of using core to brace body with movement, reporting an absence of low back pain when rolling in bed 50% of the time. LTG Duration 10/10/22 One Impairment Pt does not have an appropriate home exercise program Short Term Goal (STG) Pt to be independent and compliant with an appropriate HEP STG Duration 08/11/22 Assessment Summary Assessment Pt presents with signs and symptoms consistent with referring diagnosis. Pt likely experiencing lumbar instability, creating increased pain/soreness with twisting and impact activities . Pt should benefit from skilled therapy focusing on both improving core strength and retraining his body to use abdominal bracing more to decrease instability and reliance on low back during impact and jarring activities. Pt would also benefit from STM and stretching to decrease tightness in lumbar paraspinals and hamstrings. Physical Therapy Plan Frequency and Duration Frequency of Treatment 1-2x/week Plan of Care Start Date 07/12/22 Plan of Care End Date 10/10/22 Therapeutic Interventions Therapeutic Interventions Home Exercise Program,Joint Mobilizations,Manual Therapy, Patient/Caregiver Education, Self-Care/Home Management,Soft Tissue Mobilization, Therapeutic Activities, Therapeutic Exercises Modalities Cold Pack/Ice Massage,Electric Stimulation,Hot Packs, Ultrasound Next Visit Focus/Plan Next Note Type Treatment Note Next Visit Plan Core strangthening, [facility] for body mechanics/core bracing, STM Plan of Care Dates Plan of Care Start Date 07/12/22 Plan of Care End Date 10/10/22 Electronically Signed by: Ashish Aguilar, PT 07/12/22 [id number] If you are in agreement with this Plan of Care, please return a signed and dated copy. I have reviewed this Plan of Care and certify that the skilled therapy services above are required to meet the patient?s needs. Physician Signature Date Printed Name and Credentials Clinical Instructor Signature Printed Name and Credentials
--- NOTE | 2022-07-24 13:45 | PT.OTN ---
Current Diagnoses Cervicalgia (07/24/22) Low back pain, unspecified (07/24/22) Physical Therapy Treatment Note PT-OP-A Visit Information Start: 07/12/22 12:02 Freq: Status: Active Protocol: Document 07/24/22 12:24 NBM (Rec: 07/24/22 14:17 [facility] [id number]) Out-Patient Physical Therapy Visit Information Visit Information Visit Type Treatment Note Visit Start Time 12:23 Visit Stop Time 13:08 Total Visit Minutes 45 Visit Number 2 Number of TAX ECONOMIST Visits 1 Evaluation Information Evaluation Date 07/12/22 PT-OP-B Current Condition Start: 07/12/22 12:02 Freq: Status: Active Protocol: Document 07/12/22 10:36 DCW (Rec: 07/12/22 12:23 DCW [id number]) Current Condition History of Current Condition Onset Date 12 year history Current Complaints Low back pain History of Current Condition Pt is a 41 year old male presenting with a 12 year history of low back pain. Pt was also recently treated at this facility for cervical pain, which has improved, but still gives him trouble. Pt reports that his pain is mostly with and compression impact, like snow boarding or running, but also gets quite a bit of pain just rolling over in bed or lying on a firm surface. Rest and avoiding these activities have so far been the only thing that really alleviates any pain for him. 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 He stopped doing lifts or squats with heavy weight to avoid straining his back, mostly doing upper body. Does thrusters with lower weight. He does lat pulls and shoulder shrugs. He runs regularly and pushes through pain, but back pain sometimes goes away as he runs. He likes mountain biking and snowboarding. I'm terrible about stretching. PT-OP-F Manual Assessment Start: 07/12/22 12:02 Freq: Status: Active Protocol: Document 07/12/22 10:36 DCW (Rec: 07/12/22 12:23 DCW [id number]) Manual Assessments Soft Tissue Assessment Soft Tissue Mobility Assessment Mild-moderate tone in lumbar paraspinals, L>R. Joint Mobility Assessment Joint Mobility Assessment Hypermobility of lumbar spine, especially L4, L5 PT-OP-K Range of Motion Start: 07/12/22 12:02 Freq: Status: Active Protocol: Document 07/12/22 10:36 DCW (Rec: 07/12/22 12:23 DCW [id number]) Lumbar Spine Range of Motion Lumbar Spine Active Degrees Testing Position Standing Flexion 55 Extension 10 Lateral Flexion Left 61 Lateral Flexion Right 60 ROM Limitations Soft Tissue Tightness,Muscle Tone,Pain Comments Flexion gets to 55?, pain begins at 15? Lateral flexion measured in cm from fingertips to floor PT-OP-L Special Tests Start: 07/12/22 12:02 Freq: Status: Active Protocol: Document 07/12/22 10:36 DCW (Rec: 07/12/22 12:23 DCW [id number]) Special Tests Lumbar Spine Special Tests Vertical Spine Loading Test Results Negative Straight Leg Raise Test Results Hamstring tightness, L=38?, R= 44? Slump Test Results Hamstring tightness Prone Instability Test Test Results Positive Manual Traction Test Results unilateral LE traction caused contralateral low back/ posterior hip pain Compression Test Results Negative A-P Shearing Test Results Negative PT-OP-M Strength Start: 07/12/22 12:02 Freq: Status: Active Protocol: Document 07/12/22 10:36 DCW (Rec: 07/12/22 12:23 DCW [id number]) Trunk Strength Trunk Manual Muscle Testing Core Stabilization Pt has very good core contraction with instruction, however demonstrates minimal contraction at baseline. PT-OP-Q Treatments Start: 07/12/22 12:02 Freq: Status: Active Protocol: Document 07/24/22 12:24 NBM (Rec: 07/24/22 14:17 NBM [id number]) Cardio Equipment Recumbent Bicycle Duration (Minutes) 11 Resistance 5 Therapeutic Exercises Supine Exercises PPT Supine Exercise Name added to HEP Reps/Minutes 10x 5SH TrA contraction Supine Exercise Name core stabilization during turning Comments cues for TrA, no breathholding . LTR Supine Exercise Name LTR /c TrA contraction- added to HEP Side bilateral Reps/Minutes x10 ea Comments cued gentle, pain-free ROM Hamstring stretch Supine Exercise Name HS stretch - standing - added to HEP Side bilateral Equipment Used 8 step Reps/Minutes 2x30s ea Comments R tightness>L Standing Exercises Calf Stretch Standing Exercise Name Gastrocnemius and Soleus - added to HEP Side bilateral Equipment Used step Reps/Minutes 2 x30s ea Self-Care/Home Management Treatment Education Other Education Pt educated in gentle, pain- free range of motion for stretching and ex. Discussed self-STM w/ ball on wall (no HO given). Significant time spent educating pt on core anatomy and interrelationship of TrA with diaphgragm and lumbar stability, as well as importance of not breathholding. Also educated pt in self-monitoring of TrA in hooklying to avoid overactivation of abdominals w / transitions. PT-OP-T Assessment and Plan Start: 07/12/22 12:02 Freq: Status: Active Protocol: Document 07/24/22 12:24 [facility] (Rec: 07/24/22 14:17 [facility] [id number]) Physical Therapy Assessment Impairments Impairments Functional Activities, Functional Mobility,Pain,ROM, Soft Tissue Mobility,Strength, Tone Goals Three Impairment Pt unable to participate in normal hobbies without increased back pain Half-Way Goal (LTG) Pt to return to jogging at least 5 miles without needing to take a break due to low back pain. LTG Duration 10/10/22 Two Impairment Pt shows signs of lumbar instability Biodiesel Process Control Technician Goal (LTG) Pt to decrease hypermobility of lumbar spine by improving consistency of using core to brace body with movement, reporting an absence of low back pain when rolling in bed 50% of the time. LTG Duration 10/10/22 One Impairment Pt does not have an appropriate home exercise program Short Term Goal (STG) Pt to be independent and compliant with an appropriate HEP STG Duration 08/11/22 Assessment Summary Assessment Pt educated in gentle, pain- free range of motion for stretching and ex and encouraged to stretch with activity. Discussed self-STM w / ball on wall (no HO given). Significant time educating pt on core anatomy and interrelationship of TrA with diaphgragm and lumbar stability, as well as importance of not breathholding. Also educated pt in self-monitoring of TrA in hooklying to avoid overactivation of abdominals w / transitions. End of session pt demonstrates improved self- awareness of appropriate TrA activation with ex's and transition of supine<>sitting EOB without increase in low back pain symptoms. Added to HEP: PPT, LTR, LE stretching ( HS, Gastroc, Soleus) - HO given. Physical Therapy Plan Frequency and Duration Frequency of Treatment 1-2x/week Plan of Care Start Date 07/12/22 Plan of Care End Date 10/10/22 Therapeutic Interventions Therapeutic Interventions Home Exercise Program,Joint Mobilizations,Manual Therapy, Patient/Caregiver Education, Self-Care/Home Management,Soft Tissue Mobilization, Therapeutic Activities, Therapeutic Exercises Modalities Cold Pack/Ice Massage,Electric Stimulation,Hot Packs, Ultrasound Next Visit Focus/Plan Next Note Type Treatment Note Next Visit Plan Review core progression and progress as appropriate. Consider dynamic stretching for running (pendulums, walking lunges fwd/side, around the world). Assess HEP and self-STM w/ ball on wall and issue HO. Consider sleeping position education and thoracic elongation stretching(kitchen sink/child' s pose). Continue POC. POC: Core strengthening, Edu for body mechanics/core bracing, STM
--- NOTE | 2022-07-31 14:15 | PT.OTN ---
Current Diagnoses Cervicalgia (07/31/22) Low back pain, unspecified (07/31/22) Physical Therapy Treatment Note PT-OP-A Visit Information Start: 07/12/22 12:02 Freq: Status: Active Protocol: Document 07/31/22 13:30 DCW (Rec: 07/31/22 14:15 DCW [id number]) Out-Patient Physical Therapy Visit Information Visit Information Visit Type Treatment Note Visit Start Time 13:30 Visit Stop Time 14:15 Total Visit Minutes 45 Visit Number 3 Number of SEWER TAPPER Visits 0 Evaluation Information Evaluation Date 07/12/22 PT-OP-B Current Condition Start: 07/12/22 12:02 Freq: Status: Active Protocol: Document 07/12/22 10:36 DCW (Rec: 07/12/22 12:23 DCW [id number]) Current Condition History of Current Condition Onset Date 12 year history Current Complaints Low back pain History of Current Condition Pt is a 41 year old male presenting with a 12 year history of low back pain. Pt was also recently treated at this facility for cervical pain, which has improved, but still gives him trouble. Pt reports that his pain is mostly with and compression impact, like snow boarding or running, but also gets quite a bit of pain just rolling over in bed or lying on a firm surface. Rest and avoiding these activities have so far been the only thing that really alleviates any pain for him. 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 Prior Treatments and Tests Treated Jan 2022-Mar 2022 at this clinic for cervical pain and stiffness PT-OP-C Subjective Start: 07/12/22 12:02 Freq: Status: Active Protocol: Document 07/31/22 13:30 DCW (Rec: 07/31/22 14:15 DCW [id number]) OP-PT Subjective Patient Comments Patient Comments Pt reports he has flow to and back from the [facility] this past week, so is feeling alittle tighter. PT-OP-F Manual Assessment Start: 07/12/22 12:02 Freq: Status: Active Protocol: Document 07/12/22 10:36 DCW (Rec: 07/12/22 12:23 DCW [id number]) Manual Assessments Soft Tissue Assessment Soft Tissue Mobility Assessment Mild-moderate tone in lumbar paraspinals, L>R. Joint Mobility Assessment Joint Mobility Assessment Hypermobility of lumbar spine, especially L4, L5 PT-OP-K Range of Motion Start: 07/12/22 12:02 Freq: Status: Active Protocol: Document 07/12/22 10:36 DCW (Rec: 07/12/22 12:23 DCW [id number]) Lumbar Spine Range of Motion Lumbar Spine Active Degrees Testing Position Standing Flexion 55 Extension 10 Lateral Flexion Left 61 Lateral Flexion Right 60 ROM Limitations Soft Tissue Tightness,Muscle Tone,Pain Comments Flexion gets to 55?, pain begins at 15? Lateral flexion measured in cm from fingertips to floor PT-OP-L Special Tests Start: 07/12/22 12:02 Freq: Status: Active Protocol: Document 07/12/22 10:36 DCW (Rec: 07/12/22 12:23 DCW [id number]) Special Tests Lumbar Spine Special Tests Vertical Spine Loading Test Results Negative Straight Leg Raise Test Results Hamstring tightness, L=38?, R= 44? Slump Test Results Hamstring tightness Prone Instability Test Test Results Positive Manual Traction Test Results unilateral LE traction caused contralateral low back/ posterior hip pain Compression Test Results Negative A-P Shearing Test Results Negative PT-OP-M Strength Start: 07/12/22 12:02 Freq: Status: Active Protocol: Document 07/12/22 10:36 DCW (Rec: 07/12/22 12:23 DCW [id number]) Trunk Strength Trunk Manual Muscle Testing Core Stabilization Pt has very good core contraction with instruction, however demonstrates minimal contraction at baseline. PT-OP-Q Treatments Start: 07/12/22 12:02 Freq: Status: Active Protocol: Document 07/31/22 13:30 DCW (Rec: 07/31/22 14:15 DCW [id number]) Gym Equipment Therapeutic Ball Pelvic Tilts/Rotations Exercise Details Pelvic tilts/rotations Ball Size/Color Green - 65 cm Resisted Rotation Exercise Details Resisted trunk rotation Ball Size/Color Green - 65 cm Green T-band Body Position Sitting Therapeutic Exercises Supine Exercises Hamstring stretch Supine Exercise Name HS stretch Side bilateral Comments Contract-relax Standing Exercises Pallof Press Standing Exercise Name Pallof Press Side bilateral Resistance Blue T-band Other Exercises BOSU Lunge Other Exercise Name BOSU Lunge - TrA contraction Manual Therapy Treatment Soft Tissue Mobilization Lumbar Body Location L erector spinae Mobilization Type Strumming,Sustained Pressure, Trigger Point Release Intensity/Depth Moderate Body Position Prone Joint Mobilizations Lumbar Rotation Joint L1-5 Direction Rotation Grade III Body Position Sidelying PT-OP-T Assessment and Plan Start: 07/12/22 12:02 Freq: Status: Active Protocol: Document 07/31/22 13:30 DCW (Rec: 07/31/22 14:15 DCW [id number]) Physical Therapy Assessment Impairments Impairments Functional Activities, Functional Mobility,Pain,ROM, Soft Tissue Mobility,Strength, Tone Goals Three Impairment Pt unable to participate in normal hobbies without increased back pain Senior Living Goal (LTG) Pt to return to jogging at least 5 miles without needing to take a break due to low back pain. LTG Duration 10/10/22 Two Impairment Pt shows signs of lumbar instability Senior Living Goal (LTG) Pt to decrease hypermobility of lumbar spine by improving consistency of using core to brace body with movement, reporting an absence of low back pain when rolling in bed 50% of the time. LTG Duration 10/10/22 One Impairment Pt does not have an appropriate home exercise program Short Term Goal (STG) Pt to be independent and compliant with an appropriate HEP STG Duration 08/11/22 Assessment Summary Assessment Pt demonstrated good understanding and appropriate response with experiencing decreased low back strain and discomfort with verbal cues for core contraction/abdominal bracing. Physical Therapy Plan Frequency and Duration Frequency of Treatment 1-2x/week Plan of Care Start Date 07/12/22 Plan of Care End Date 10/10/22 Therapeutic Interventions Therapeutic Interventions Home Exercise Program,Joint Mobilizations,Manual Therapy, Patient/Caregiver Education, Self-Care/Home Management,Soft Tissue Mobilization, Therapeutic Activities, Therapeutic Exercises Modalities Cold Pack/Ice Massage,Electric Stimulation,Hot Packs, Ultrasound Next Visit Focus/Plan Next Note Type Treatment Note Next Visit Plan Review core progression and progress as appropriate. Consider dynamic stretching for running (pendulums, walking lunges fwd/side, around the world). Assess HEP and self-STM w/ ball on wall and issue HO. Consider sleeping position education and thoracic elongation stretching(kitchen sink/child' s pose). Continue POC. POC: Core strengthening, Edu for body mechanics/core bracing, STM
--- NOTE | 2022-08-06 17:27 | PT.OTN ---
Current Diagnoses Cervicalgia (08/06/22) Low back pain, unspecified (08/06/22) Physical Therapy Treatment Note PT-OP-A Visit Information Start: 07/12/22 12:02 Freq: Status: Active Protocol: Document 08/06/22 16:30 DCW (Rec: 08/06/22 17:26 DCW [id number]) Out-Patient Physical Therapy Visit Information Visit Information Visit Type Treatment Note Visit Start Time 16:30 Visit Stop Time 17:15 Total Visit Minutes 45 Visit Number 4 Number of AUTOMATIC SHIRRING MACHINE OPERATOR Visits 0 Evaluation Information Evaluation Date 07/12/22 PT-OP-B Current Condition Start: 07/12/22 12:02 Freq: Status: Active Protocol: Document 07/12/22 10:36 DCW (Rec: 07/12/22 12:23 DCW [id number]) Current Condition History of Current Condition Onset Date 12 year history Current Complaints Low back pain History of Current Condition Pt is a 41 year old male presenting with a 12 year history of low back pain. Pt was also recently treated at this facility for cervical pain, which has improved, but still gives him trouble. Pt reports that his pain is mostly with and compression impact, like snow boarding or running, but also gets quite a bit of pain just rolling over in bed or lying on a firm surface. Rest and avoiding these activities have so far been the only thing that really alleviates any pain for him. 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 Prior Treatments and Tests Treated Jan 2022-Mar 2022 at this clinic for cervical pain and stiffness PT-OP-C Subjective Start: 07/12/22 12:02 Freq: Status: Active Protocol: Document 08/06/22 16:30 DCW (Rec: 08/06/22 17:26 DCW [id number]) OP-PT Subjective Patient Comments Patient Comments Pt had a great weekend, back is feeling pretty good, maybe slightly better than last week. PT-OP-F Manual Assessment Start: 07/12/22 12:02 Freq: Status: Active Protocol: Document 07/12/22 10:36 DCW (Rec: 07/12/22 12:23 DCW [id number]) Manual Assessments Soft Tissue Assessment Soft Tissue Mobility Assessment Mild-moderate tone in lumbar paraspinals, L>R. Joint Mobility Assessment Joint Mobility Assessment Hypermobility of lumbar spine, especially L4, L5 PT-OP-K Range of Motion Start: 07/12/22 12:02 Freq: Status: Active Protocol: Document 07/12/22 10:36 DCW (Rec: 07/12/22 12:23 DCW [id number]) Lumbar Spine Range of Motion Lumbar Spine Active Degrees Testing Position Standing Flexion 55 Extension 10 Lateral Flexion Left 61 Lateral Flexion Right 60 ROM Limitations Soft Tissue Tightness,Muscle Tone,Pain Comments Flexion gets to 55?, pain begins at 15? Lateral flexion measured in cm from fingertips to floor PT-OP-L Special Tests Start: 07/12/22 12:02 Freq: Status: Active Protocol: Document 07/12/22 10:36 DCW (Rec: 07/12/22 12:23 DCW [id number]) Special Tests Lumbar Spine Special Tests Vertical Spine Loading Test Results Negative Straight Leg Raise Test Results Hamstring tightness, L=38?, R= 44? Slump Test Results Hamstring tightness Prone Instability Test Test Results Positive Manual Traction Test Results unilateral LE traction caused contralateral low back/ posterior hip pain Compression Test Results Negative A-P Shearing Test Results Negative PT-OP-M Strength Start: 07/12/22 12:02 Freq: Status: Active Protocol: Document 07/12/22 10:36 DCW (Rec: 07/12/22 12:23 DCW [id number]) Trunk Strength Trunk Manual Muscle Testing Core Stabilization Pt has very good core contraction with instruction, however demonstrates minimal contraction at baseline. PT-OP-Q Treatments Start: 07/12/22 12:02 Freq: Status: Active Protocol: Document 08/06/22 16:30 DCW (Rec: 08/06/22 17:26 DCW [id number]) Gym Equipment Therapeutic Ball Pelvic Tilts/Rotations Exercise Details Pelvic tilts/rotations Ball Size/Color Green - 65 cm Therapeutic Exercises Supine Exercises Hamstring stretch Supine Exercise Name HS stretch Side bilateral Comments Contract-relax Standing Exercises Pallof Press Standing Exercise Name Pallof Press Side bilateral Resistance Blue T-band Other Exercises BOSU Lunge Other Exercise Name BOSU Lunge - TrA contraction Manual Therapy Treatment Soft Tissue Mobilization Lumbar Body Location L erector spinae Mobilization Type Strumming,Sustained Pressure, Trigger Point Release Intensity/Depth Moderate Body Position Prone Joint Mobilizations Lumbar Joint L1-5 Direction P->A Grade IV Body Position Prone Lumbar Rotation Joint L1-5 Direction Rotation Grade III Body Position Sidelying PT-OP-T Assessment and Plan Start: 07/12/22 12:02 Freq: Status: Active Protocol: Document 08/06/22 16:30 DCW (Rec: 08/06/22 17:26 DCW [id number]) Physical Therapy Assessment Impairments Impairments Functional Activities, Functional Mobility,Pain,ROM, Soft Tissue Mobility,Strength, Tone Goals Three Impairment Pt unable to participate in normal hobbies without increased back pain Crm Developer Goal (LTG) Pt to return to jogging at least 5 miles without needing to take a break due to low back pain. LTG Duration 10/10/22 Two Impairment Pt shows signs of lumbar instability Penitentiary Goal (LTG) Pt to decrease hypermobility of lumbar spine by improving consistency of using core to brace body with movement, reporting an absence of low back pain when rolling in bed 50% of the time. LTG Duration 10/10/22 One Impairment Pt does not have an appropriate home exercise program Short Term Goal (STG) Pt to be independent and compliant with an appropriate HEP STG Duration 08/11/22 Assessment Summary Assessment Pt does well with using abdominal bracing to help limit low back pain, but typically needs verbal cues to perform. Feeling better with STM/joint mobs. Physical Therapy Plan Frequency and Duration Frequency of Treatment 1-2x/week Plan of Care Start Date 07/12/22 Plan of Care End Date 10/10/22 Therapeutic Interventions Therapeutic Interventions Home Exercise Program,Joint Mobilizations,Manual Therapy, Patient/Caregiver Education, Self-Care/Home Management,Soft Tissue Mobilization, Therapeutic Activities, Therapeutic Exercises Modalities Cold Pack/Ice Massage,Electric Stimulation,Hot Packs, Ultrasound Next Visit Focus/Plan Next Note Type Treatment Note Next Visit Plan Review core progression and progress as appropriate. Consider dynamic stretching for running (pendulums, walking lunges fwd/side, around the world). Assess HEP and self-STM w/ ball on wall and issue HO. Consider sleeping position education and thoracic elongation stretching(kitchen sink/child' s pose). Continue POC. POC: Core strengthening, Edu for body mechanics/core bracing, STM
--- NOTE | 2023-04-22 16:34 | PT.OPDS ---
Current Diagnoses Cervicalgia (08/06/22) Low back pain, unspecified (08/06/22) Visit Care Team Role Provider Type Treasure Sands MD Family Provider Non-Staff Primary Care Provider Specialty: Medical Address: [address], [address] Email: Winston Conde DO Attending Provider Non-Staff Referring Provider Specialty: Medical Address: [facility], [address] [place] [address], [id number] Email: Visit Number Visit Number 4 Discharge Summary PT-OP-B Current Condition Start: 07/12/22 12:02 Freq: Status: Active Protocol: Document 07/12/22 10:36 DCW (Rec: 07/12/22 12:23 DCW [id number]) Current Condition History of Current Condition Onset Date 12 year history Current Complaints Low back pain History of Current Condition Pt is a 41 year old male presenting with a 12 year history of low back pain. Pt was also recently treated at this facility for cervical pain, which has improved, but still gives him trouble. Pt reports that his pain is mostly with and compression impact, like snow boarding or running, but also gets quite a bit of pain just rolling over in bed or lying on a firm surface. Rest and avoiding these activities have so far been the only thing that really alleviates any pain for him. 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 Prior Treatments and Tests Treated Jan 2022-Mar 2022 at this clinic for cervical pain and stiffness PT-OP-C Subjective Start: 07/12/22 12:02 Freq: Status: Active Protocol: Document 08/06/22 16:30 DCW (Rec: 08/06/22 17:26 DCW [id number]) OP-PT Subjective Patient Comments Patient Comments Pt had a great weekend, back is feeling pretty good, maybe slightly better than last week. PT-OP-F Manual Assessment Start: 07/12/22 12:02 Freq: Status: Active Protocol: Document 07/12/22 10:36 DCW (Rec: 07/12/22 12:23 DCW [id number]) Manual Assessments Soft Tissue Assessment Soft Tissue Mobility Assessment Mild-moderate tone in lumbar paraspinals, L>R. Joint Mobility Assessment Joint Mobility Assessment Hypermobility of lumbar spine, especially L4, L5 PT-OP-K Range of Motion Start: 07/12/22 12:02 Freq: Status: Active Protocol: Document 07/12/22 10:36 DCW (Rec: 07/12/22 12:23 DCW [id number]) Lumbar Spine Range of Motion Lumbar Spine Active Degrees Testing Position Standing Flexion 55 Extension 10 Lateral Flexion Left 61 Lateral Flexion Right 60 ROM Limitations Soft Tissue Tightness,Muscle Tone,Pain Comments Flexion gets to 55?, pain begins at 15? Lateral flexion measured in cm from fingertips to floor PT-OP-L Special Tests Start: 07/12/22 12:02 Freq: Status: Active Protocol: Document 07/12/22 10:36 DCW (Rec: 07/12/22 12:23 DCW [id number]) Special Tests Lumbar Spine Special Tests Vertical Spine Loading Test Results Negative Straight Leg Raise Test Results Hamstring tightness, L=38?, R= 44? Slump Test Results Hamstring tightness Prone Instability Test Test Results Positive Manual Traction Test Results unilateral LE traction caused contralateral low back/ posterior hip pain Compression Test Results Negative A-P Shearing Test Results Negative PT-OP-M Strength Start: 07/12/22 12:02 Freq: Status: Active Protocol: Document 07/12/22 10:36 DCW (Rec: 07/12/22 12:23 DCW [id number]) Trunk Strength Trunk Manual Muscle Testing Core Stabilization Pt has very good core contraction with instruction, however demonstrates minimal contraction at baseline. PT-OP-T Assessment and Plan Start: 07/12/22 12:02 Freq: Status: Active Protocol: Document 04/22/23 16:33 DCW (Rec: 04/22/23 16:34 DCW [id number]) Physical Therapy Assessment Assessment Summary Assessment Pt canceled last scheduled appointment, and has now not been seen in more than eight months, has no further follow- up visits scheduled. Pt will be discharged from skilled therapy at this time, will require a new referral in order to return in the future. Physical Therapy Plan Discharge Physical Therapy Discharge Reasons No Longer Attending PT
== END 2023-04-24 10:18 | disposition home or self-care (01) ==
LOC: PHYS 16:30
PROVIDERS: Family Provider Student in an Organized Health Care Education/Training Program; PCP Student in an Organized Health Care Education/Training Program; Referring Provider Student in an Organized Health Care Education/Training Program; Visit Provider Student in an Organized Health Care Education/Training Program
DX: M54.50 Low back pain, unspecified (principal); M54.2 Cervicalgia
CPT/HCPCS: 97110; 97140; 97162; 97535

== ENCOUNTER → 2023-01-31 11:51 | Outpatient (CLI) | payer OTHER, SELFPAY ==
--- NOTE | 2023-01-31 11:55 | DI.RAD.S_ITS ---
PROCEDURE: XR CERVICAL SPINE 2V OR 3V INDICATIONS: intervertebral disc degeneration, arthritis TECHNIQUE: 3 view(s) of the cervical spine were acquired. COMPARISON: None. FINDINGS: Bones: No fractures or dislocations to the T1 level. The lateral masses of C1 appear intact on the odontoid view. No suspicious bony lesions. Mild C5-C6 and C6-C7 degenerative disc disease. Mild C6-C7 and C7-T1 facet arthropathy. Soft tissues: No prevertebral soft tissue swelling. IMPRESSION: Mild multilevel degenerative disc disease and facet arthropathy. Dictated by: Maine Maradiaga MD, PhD on 01/31/2023 at 13:34 Approved by: Maine Maradiaga MD, PhD on 01/31/2023 at 13:35
--- NOTE | 2023-01-31 11:55 | DI.RAD.S_ITS ---
PROCEDURE: XR THORACIC SPINE 3V INDICATIONS: intervertebral disc degeneration, arthritis TECHNIQUE: 3 views of the thoracic spine were acquired. COMPARISON: None. FINDINGS: Bones: No fractures or dislocations. No suspicious bony lesions. 12 pairs of ribs are noted, and appear intact where visualized. Mild degenerative disc changes throughout the thoracic spine Soft tissues: No paravertebral stripe thickening. IMPRESSION: Mild thoracic spine multilevel degenerative disc disease. Dictated by: Maine Maradiaga MD, PhD on 01/31/2023 at 13:34 Approved by: Maine Maradiaga MD, PhD on 01/31/2023 at 13:34
--- NOTE | 2023-01-31 11:55 | DI.RAD.S_ITS ---
PROCEDURE: XR LUMBAR SPINE 2-3V INDICATIONS: intervertebral disc degeneration, arthritis TECHNIQUE: 3 views of the lumbar spine were acquired. COMPARISON: None. FINDINGS: Bones: 5 [id number] vertebrae are present. There is trace, approximately 3 millimeters of L5-S1 retrolisthesis. No vertebral body compression fractures. No suspicious bony lesions. Mild L5-S1 degenerative disc disease. Mild L5-S1 facet arthropathy. Soft tissues: Overlying bowel gas pattern is normal. No suspicious soft tissue calcifications. IMPRESSION: Mild L5-S1 degenerative disc disease and facet arthropathy. Dictated by: Maine Maradiaga MD, PhD on 01/31/2023 at 13:33 Approved by: Maine Maradiaga MD, PhD on 01/31/2023 at 13:34
--- NOTE | 2023-01-31 11:55 | DI.RAD.S_ITS ---
PROCEDURE: XR CHEST 2V INDICATIONS: upper respiratory infection TECHNIQUE: 2 views of the chest were acquired. COMPARISON: None. FINDINGS: Surgical changes and devices: None. Lungs and pleura: Lungs are clear. No pleural effusions or pneumothorax. Mediastinum: Mediastinal contours are normal. Heart size is normal. Bones and chest wall: No suspicious bony abnormalities. Soft tissues appear unremarkable. IMPRESSION: No acute cardiopulmonary abnormality is seen. Dictated by: Maine Maradiaga MD, PhD on 01/31/2023 at 13:34 Approved by: Maine Maradiaga MD, PhD on 01/31/2023 at 13:34
== END ==
PROVIDERS: Family Provider Student in an Organized Health Care Education/Training Program; PCP Student in an Organized Health Care Education/Training Program; Referring Provider Chiropractor; Visit Provider Chiropractor
DX: J06.9 Acute upper respiratory infection, unspecified (principal); M51.36 Other intervertebral disc degeneration, lumbar region; M13.80 Other specified arthritis, unspecified site; M51.34 Other intervertebral disc degeneration, thoracic region; M51.37 Other intervertebral disc degeneration, lumbosacral region; M47.817 Spondylosis without myelopathy or radiculopathy, lumbosacral region; M50.30 Other cervical disc degeneration, unspecified cervical region; M47.812 Spondylosis without myelopathy or radiculopathy, cervical region
CPT/HCPCS: 71046; 72040; 72072; 72100; 94060

== ENCOUNTER → 2023-08-26 13:46 | Outpatient (CLI) | payer OTHER, SELFPAY ==
[2023-08-26 15:25] LABS: Add Manual Diff / Slide Review NO; Basophils Absolute Auto 0 /uL (0-100); Basophils Percent Auto 0.6 % (0-2); Eosinophils Absolute Auto 100 /uL (0-450); Hematocrit 42.4 % (41-53); Hemoglobin 14.3 g/dL (13.5-17.5); Lymphocytes Absolute Auto 1700 /uL (1100-4500); Lymphocytes Percent Auto 31.9 % (25-40); Mean Corpuscular HGB Conc 33.8 % (30-36); Mean Corpuscular Hemoglobin 30.3 PG (26-34); Mean Corpuscular Volume 89.6 fL (80-100); Monocytes Absolute Auto 600 /uL (0-900); Neutrophils Absolute Auto 2900 /uL (1500-7000); Neutrophils Percent Auto 54.5 % (50-75); Platelet Count 197 X10^3/uL (150-400); Red Blood Cell Count 4.73 X10^6/uL (4.5-5.9); Red Cell Distribution Width 13.1 % (11.6-14.8); White Blood Cell Count 5.3 X10^3/uL (4.5-11.0)
[2023-08-26 15:45] LABS: Alanine Aminotransferase 16 IU/L (<50); Albumin 4.6 g/dL (3.5-5.0); Alkaline Phosphatase 68 U/L (38-126); Aspartate Aminotransferase 29 IU/L (17-59); BUN Creatinine Ratio 16.7 (6-22); Bilirubin Total 2.7 mg/dL (0.2-1.3); Blood Urea Nitrogen 14 mg/dL (9-20); Calcium 9.1 mg/dL (8.4-10.2); Carbon Dioxide 29 mmol/L (22-32); Chloride 103 mmol/L (98-107); Cholesterol 187 mg/dL (140-199); Estimated Glomerular Filt Rate > 60 mL/min (>60); Globulin 2.3 g/dL (1.7-4.1); Glucose 84 mg/dL (70-100); HDL Cholesterol 63 mg/dL (40-60); HEMOLYSIS < 15 (0-50); LDL Cholesterol Calculated 112 mg/dL (<100); Potassium 4.5 mmol/L (3.4-5.1); Sodium 136 mmol/L (137-145); Total Protein 6.9 g/dL (6.3-8.2); Triglycerides 62 mg/dL (35-150)
== END ==
LOC: LAB 13:47
PROVIDERS: Family Provider Student in an Organized Health Care Education/Training Program; PCP Family Medicine; Referring Provider Family Medicine; Visit Provider Family Medicine
DX: Z00.00 Encounter for general adult medical examination without abnormal findings (principal)
CPT/HCPCS: 36415; 80053; 80061; 85025